=== PATIENT | female | born 1995 | race Caucasian/White ===

== ENCOUNTER 2017-12-07 12:09 | Inpatient (IN) | payer OTHER ==
[~2017-12-07] VITALS: Ht 165.1 cm; Wt 71.7 kg
[~2017-12-07 12:09] MED LIST: DICLEGIS DR 101 EACH PO; REGLAN10 M1 PO
[2017-12-07 13:04] VITALS: BP 119/68
[2017-12-07 13:56] LABS: ABSOLUTE BASOPHIL COUNT 0 /CUMM (0.0-0.2); ABSOLUTE EOSINOPHIL COUNT 0 /CUMM (0.0-0.7); ABSOLUTE GRANULOCYTE CT 7.9 /CUMM (1.4-6.5); ABSOLUTE LYMPH COUNT 1.2 /CUMM (1.2-3.4); ABSOLUTE MONOCYTE COUNT 0.6 /CUMM (0.10-0.60); BASOPHIL % 0.3 % (0.0-2.0); EOSINOPHIL % 0.4 % (0-5); GRANULOCYTE % 81.1 % (42.2-75.2); HEMATOCRIT 32.1 % (37-47); MEAN CORPUSCULAR HGB 28.8 PG (27.0-31.0); MEAN CORPUSCULAR HGB CONC 33.9 G/DL (33.0-37.0); MEAN CORPUSCULAR VOLUME 85.1 FL (81.0-99.0); MEAN PLATELET VOLUME 8.2 FL (7.4-10.4); PLATELET COUNT 275 /CUMM (130-400); RBC DISTRIBUTION WIDTH 14.2 % (11.5-14.5); RED BLOOD CELL CT 3.78 /CUMM (4.20-5.40); WHITE BLOOD CELL COUNT 9.8 /CUMM (4.8-10.8)
[2017-12-07] MEDS ORDERED: PRENATAL 19 CH1 EAC1 (15:30)
[2017-12-07] MEDS ORDERED: AMOXICILLIN500 M3 PO (15:31)
--- NOTE | 2017-12-07 16:03 | History & Physical ---
General Information and HPI MD Statement: I have seen and personally examined KIM LUNA and documented this H&P. The patient is a 21 year old female at [40] weeks and [0] days gestation who presented with a chief complaint of [leaking amniotic fluid for the past 24 hours.]. Source of Information: patient Exam Limitations: no limitations History of Present Illness: 21yo at 40w found to have likely PROM on office exam, admiited for IOL. Patient gives h/o possible subtle leakage of clear AF for the past 20 hours. Denies pain, cramps, UCs. Baby has been active. GBS neg. 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 No Contractions: occasional #1 - FHR Baseline: 140 Category: 1 Presentation: VTX Patient for Induction? Yes Ren Score Ren Score Response Value Cervix Position: mid-position 1 Cervix Consistency: medium 1 Cervix Effacement: 60-70% 2 Cervix Dilation: 1-2 cm 1 Cervix Station: -2 1 Total 6 Physical Exam General Appearance Alert, No Acute Distress Skin No Rashes HEENT Mucous Membr. moist/pink Neck Supple Cardiovascular Regular Rate Lungs Clear to Auscultation Abdomen Soft, No Tenderness Neurological Normal Gait, Normal Speech Extremities No Tenderness/Swelling Breasts Breast appear nl Reproductive (FEMALE) Normal female genitalia Pelvic (FEMALE) Appearance Normal Labs Antibody Screen: neg Assessment/Plan As Ranked By This Provider Problem List: 1. Full-term premature rupture of membranes Core Measures Venous Thromboembolism VTE Risk Factors / No Mechanical VTE Prophylaxis d/t LowRisk-No Interven Req'd No VTE Pharm Prophylaxis d/t LowRisk-No Interven Req'd Attending MD Review Statement Attending Statement Attending MD Statement: examined this patient, discussed with family, discussed w/nursing
--- NOTE | 2017-12-08 08:05 | PN- OBGYN ---
Surgical Brief Attending Note Brief Attending Note: Received one Miso, still very comfortable FHR cat 1, BL 140, mod. variability UCs irreg, mild Cervix 1-2, 80%, soft, VTX-2, no leakage seen A: possible prolonged ROM >24h clinically stable, afebrile P: continue IOL with Pitocin
--- NOTE | 2017-12-08 08:14 | PN- OBGYN ---
Surgical Brief Attending Note Brief Attending Note: Received epidural at 1:30am, she was 3cm/90%/0 station. Patient very comfortable this morning, slept for many hours, denies pain 8cm/swollen/0 station, swelling of anterior portion of cervix leaking clear AF Flores draining clear urine UCs q2-4, coupling FHR BL 150, +accels Maternal temp 100.7, feels warm but was under several blankets A: maternal temp in labor on Pitocin s/p Miso X1 for prolonged ROM P: Ampicillin/Genta IV for likely chorioamnionitis IV Tylenol for fever maternal position changes q 20min
--- NOTE | 2017-12-08 11:42 | PN- OBGYN ---
Surgical Brief Attending Note Brief Attending Note: pt comfortable t - 100.1 fht 140s moderate varaibility +acc no dec toco q 3 pit@8mu sve 8-/ -1 a/p p0 40+1 wks prolonged rom since 12/06 4p, on a/g/ tylenol for chorio, on pit, and maternal status overall reassuring -cont abx, tylenol, add clinda -titrate pitocin per protocol -cont close observation
--- NOTE | 2017-12-08 15:59 | Labor & Delivery Summary ---
Delivery Summary Vaginal Delivery: Vaginal: spontaneous Episiotomy/Lacerations: Episiotomy/Lacerations: 2ND DEG Repair: 2-0 TOMAS Placenta: Placenta: spontanteous, normal, 3 vessel Anesthesia: block Baby's Weight: 8#2 Apgars - 1 Min: 9 Apgars - 5 Min: 9 Additional Comments: Pt FD / +2 and pushing w/ epidural. Controlled of live female, apg 11/22. Head del over perineum from SYED. Meconiun stained fluid noted. Mouth and nose bulb suctioned. Body del w/o difficulty. Cord clamped and cut. Baby to RN. Cord gases sent. 3vc plac del spont intact. Fundus contracted. 2nd deg lac repaired usual fashion 2-0 tomas. Good hemostasis. Pt courtney well. EBL 400cc.
[2017-12-09 08:02] LABS: ABSOLUTE BASOPHIL COUNT 0.1 /CUMM (0.0-0.2); ABSOLUTE EOSINOPHIL COUNT 0.1 /CUMM (0.0-0.7); ABSOLUTE GRANULOCYTE CT 22.9 /CUMM (1.4-6.5); ABSOLUTE MONOCYTE COUNT 1.2 /CUMM (0.10-0.60); BASOPHIL % 0.3 % (0.0-2.0); EOSINOPHIL % 0.3 % (0-5); HEMATOCRIT 27.6 % (37-47); MEAN CORPUSCULAR HGB CONC 33.8 G/DL (33.0-37.0); MEAN CORPUSCULAR VOLUME 85.8 FL (81.0-99.0); MEAN PLATELET VOLUME 8.6 FL (7.4-10.4); PLATELET COUNT 230 /CUMM (130-400); RED BLOOD CELL CT 3.22 /CUMM (4.20-5.40)
[2017-12-09 08:18] LABS: WHITE BLOOD CELL COUNT 25.2 /CUMM (4.8-10.8)
[2017-12-09 08:54] LABS: GRANULOCYTE % 90.8 % (42.2-75.2)
--- NOTE | 2017-12-09 10:53 | PN- Post Delivery/GYN ---
Subjective Subjective: feeling well Review of Systems Constitutional: Denies: chills, fever. EENTM: Denies: blurred vision, double vision, visual changes. Cardiovascular: Denies: chest pain, edema. Respiratory: Denies: cough. Gastrointestinal: Denies: diarrhea, nausea, vomiting. Neurological/Psychological: Denies: anxiety, depressed. Objective Last 24 Hrs of Vital Signs/I&O vss Physical Exam General Appearance Alert, Oriented X3, Cooperative, No Acute Distress Cardiovascular Regular Rate Lungs Clear to Auscultation Abdomen Normal Bowel Sounds, Soft, No Tenderness, fundus firm Pelvic (FEMALE) lochia serosanganous Current Medications: Current Medications Sig/Dax Start time Last Medication Dose Route Stop Time Status Admin Acetaminophen 650 MG Q4P PRN 12/08 1600 AC PO Acetaminophen 0 .STK-MED ONE 12/08 1322 DC IV Acetaminophen 1,000 MG Q6P PRN 12/08 1300 12/08 N/A 1 UNIT IV 1322 Ampicillin 2,000 MG Q6H 12/08 1400 DC 12/08 Sodium Chloride 100 ML IV 1349 Ampicillin 2,000 MG Q6 12/08 0757 IL 12/08 Sodium Chloride 100 ML IV 0807 Butorphanol Tartrate 1 MG Q4P PRN 12/07 2330 DC 12/07 IM 2328 Butorphanol Tartrate 1 MG Q4P PRN 12/07 2330 IL 12/07 IV 2328 Clindamycin 900 MG Q8H 12/08 1200 DC 12/08 Dextrose/Water 50 ML IV 1158 Docusate Sodium 100 MG BID PRN 12/08 1600 AC PO Ephedrine 5 MG EVERY 5 MIN PRN 12/08 0215 AC IV Gentamicin Sulfate 80 MG IQ8 12/08 0815 IL 12/08 Dextrose/Water 100 ML IV 0838 Ibuprofen 800 MG Q6P PRN 12/08 1600 AC 12/09 PO 0943 Lactated Ringer's 1,000 ML Q8H 12/07 1300 DC 12/07 IV 2000 Lanolin 0 .STK-MED ONE 12/09 0508 DC TOP Misoprostol 25 MCG Q4 12/07 1800 DC 12/07 VAG 1541 Oxytocin 20 UNITS Q5H 12/08 1600 IL 12/08 Lactated Ringer's 1,000 ML IV 12/08 2059 1815 Oxytocin 30 UNITS PER PROTOCL 12/07 2015 IL 12/07 Lactated Ringer's 500 ML IV 2000 Last 24 Hrs of Labs/Trevor: Laboratory Tests 12/09/17 0640: CBC w Diff NO MAN DIFF REQ, RBC 3.22 L, MCV 85.8, MCH 29.0, MCHC 33.8, RDW 14.0 , MPV 8.6, Gran % 90.8 H, Lymphocytes % 4.0 L, Monocytes % 4.6, Eosinophils % 0.3, Basophils % 0.3, Absolute Granulocytes 22.9 H, Absolute Lymphocytes 1.0 L , Absolute Monocytes 1.2 H, Absolute Eosinophils 0.1, Absolute Basophils 0.1 Microbiology 12/08 1635 GENITAL: Genital Culture - RES GRAM NEGATIVE RODS 12/08 1635 GENITAL: Genital Culture - RES GRAM NEGATIVE RODS Assessment/Plan Assessment/Plan ppd 1 vsss afebrile Problem List: 1. Full-term premature rupture of membranes 2. Attending MD Review Statement Attending Statement Attending MD Statement: examined this patient, discussed with family, discussed with nursing Attending Assessment/Plan: elevates WBC 25.2 will repeat today
[2017-12-10] MEDS ORDERED: IBUPROFEN800 M1 PO (08:58)
--- NOTE | 2017-12-10 09:22 | PN- OBGYN ---
Surgical Brief Attending Note Brief Attending Note: PPD#2 pt is doing well, no OB complaints. she c/o she had wisdomtooth issues prior to delivery, she was on amoxillin , she has appt. 12/14/2017 f/u with dentist. PE: VSS CV RRR Lungs CTA B/L Abdomen: soft, nontender, uterus firm, fundus below umbilicus. lochia mild Ext: DCT (-) A/P: 21 yo, s/p , PPD#2 1. encourage ambulation and 2. pain management as needed 3. will dc/ home, f/u in 2 wks and 6 wks, discharge instructions given, she understand.
[2017-12-10 09:26] LABS: ABSOLUTE BASOPHIL COUNT 0 /CUMM (0.0-0.2); ABSOLUTE EOSINOPHIL COUNT 0.3 /CUMM (0.0-0.7); ABSOLUTE GRANULOCYTE CT 13.3 /CUMM (1.4-6.5); ABSOLUTE MONOCYTE COUNT 0.6 /CUMM (0.10-0.60); BASOPHIL % 0 % (0.0-2.0); EOSINOPHIL % 1.7 % (0-5); HEMATOCRIT 29.4 % (37-47); MEAN CORPUSCULAR HGB 28.6 PG (27.0-31.0); MEAN CORPUSCULAR HGB CONC 33.4 G/DL (33.0-37.0); MEAN CORPUSCULAR VOLUME 85.7 FL (81.0-99.0); MEAN PLATELET VOLUME 8.1 FL (7.4-10.4); PLATELET COUNT 295 /CUMM (130-400); RBC DISTRIBUTION WIDTH 14.7 % (11.5-14.5); RED BLOOD CELL CT 3.43 /CUMM (4.20-5.40)
[2017-12-10 10:07] LABS: GRANULOCYTE % 88.1 % (42.2-75.2)
== END 2017-12-10 11:46 | DRG 775 ==
LOC: CBCO 12:09 → GNO 12:40
PROVIDERS: Obstetrics & Gynecology
PROC: 10E0XZZ Delivery of Products of Conception, External Approach (ICD-10-PCS; principal; 2017-12-08)
PROC: 0KQM0ZZ Repair Perineum Muscle, Open Approach (ICD-10-PCS; principal; 2017-12-08)
DX: O70.1 Second degree perineal laceration during delivery (principal); Z37.0 Single live birth; O41.1230 Chorioamnionitis, third trimester, not applicable or unspecified; Z3A.40 40 weeks gestation of pregnancy
CPT/HCPCS: 87070; GNOP; GNOS; 36415; 81001; 84112; J0131; J0290; J1580; J2405; J7120